=== PATIENT | male | born 1985 | race Caucasian/White ===

== ENCOUNTER → 2018-03-23 | Day surgery (SDC) | payer BC ==
[~2018-03-23] VITALS: Ht 177.8 cm; Wt 97.5 kg
[~2018-03-23] MED LIST: BUPIVAC MPF-EPI 0.5%-1:200000 30 ML VIAL. ONE; BUPIVACAINE 0.25% 50 ML VIAL. ONE; DEXAMETHASONE SOD PHOS 20 MG/5 ML VIAL. ONE; HYDROmorphone 2 MG/ML VIAL IV PRN; IBUP-1027 PO; IV RINGERS,LACTATED 1000ML 1,000 ML IV SCH; KETOROLAC 30 MG/ML INJ FOR OR. INJ ONE; LIDOCAINE 1% PF 2 ML VIAL. ID PRN; MIDAZOLAM HCL/PF 2 MG/2 ML VIAL. ONE; MORPHINE SULFATE 2 MG/ML VIAL. IV PRN; MULT-404 PO; ONDANSETRON PF 4 MG/2 ML VIAL. IV PRN; ONDANSETRON PF 4 MG/2 ML VIAL. ONE; OXYC-323 PO; PROCHLORPERAZINE 10 MG/2 ML VIAL. IV PRN; PROPOFOL 40 ML IV ONE; SUCCINYLCHOLINE 200 MG/10 ML VIAL. ONE; fentaNYL PF VIAL 100 MCG/2 ML VIAL IV PRN; fentaNYL PF VIAL 100 MCG/2 ML VIAL ONE; oxyCODONE/APAP 5/325 1 TAB TABLET PO ONE
--- NOTE | 2018-03-23 10:31 | PDOC4 ---
Operative Note Operative Note Date: 03/23/2018 Preoperative diagnosis: Pilonidal cyst Postoperative diagnosis: Same Procedure: Pilonidal cystectomy Surgeon: Wilbert Specimen: Pilonidal cyst Dictation: Patient is a 32-year-old male with a history of recurrent infected pilonidal cyst procedure of pilonidal cystectomy was explained to the patient detail was benefits were also discussed including bleeding infection alternatives to this procedure also discussed with the patient seemed understanding gave both verbal and written consent had procedure performed. Patient was taken to the operating room placed in supine position general anesthesia was initiated once patient was asleep and intubated is then repositioned in the prone positioning and his buttocks was prepped and draped usual sterile fashion Betadine scrub and solution. An area around the pilonidal cyst was injected with half percent Marcaine with epinephrine and elliptical incision was made with 15 blade scalpel was carried down through the subcutaneous tissue using electrocautery to provide hemostasis this was carried down to the fascia the tissue was completely excised and sent for pathology wound was then closed in 2 layers a deep layer of running 0 Vicryl suture and the skin was reapproximated with 2-0 nylon in a horizontal mattress fashion wound was then dressed with 4 x 4's ABDs and Medipore tape. Patient was repositioned in the supine positioning awakened and asked made in the operating room taken recovery in stable condition all sponge instrument needle counts listed as correct estimate blood loss 20 mL. ANDIE WRIGHT MD Mar 23, 2018 10:31
--- NOTE | 2018-03-23 10:32 | DISCH ---
DISCHARGE INSTRUCTIONS Condition on Discharge Condition on Discharge: Stable Activity After Discharge Activity Instructions for Disc: Avoid exertion Other activity instructions: no sitting directly on the wound for 2 weeks Diet after Discharge Diet after Discharge: Regular Wound Incision Care Other wound/incision instructi: May shower in 24 hours Contacting the after DC Call your doctor for: If your condition worsens Follow-Up Follow up with: Dr. Wright in 2 weeks ANDIE WRIGHT MD Mar 23, 2018 10:32
[2018-03-23 11:34] VITALS: BP 124/72
--- NOTE | 2018-03-26 15:07 | PATHOLOGY ---
[facility] Accession Number: [id number] . 01 Material submitted: . PILONIDAL CYST . 01 Clinical history: . Pilonidal cyst . 02 Diagnosis: Skin and subcutaneous tissue, pilonidal cystectomy: - Pilonidal cyst / sinus with scarring and chronic inflammation. . (JP:mm; 03/26/18) [facility]/03/26/2018 . 02 Comment: There is no evidence of malignancy. . (M:mm; 03/26/18) . 02 Electronically signed: . Rafael Paz MD, Pathologist NPI- [id number] . 01 Gross description: . The specimen is received in formalin, labeled "Whitley Perdomo, pilonidal cyst", is an unoriented ellipse of egan-white skin 5.0 x 0.9 cm with underlying yellow lobulated partially hemorrhagic soft tissue measuring 4.7 x 1.2 x 1.0 cm. The specimen is serially sectioned to reveal a ham-white hemorrhagic possible sinus tract. Computer Support Specialist Instructor tissue is submitted in A1. ([facility]; 03/23/2018) [facility] . 02 Pathologist provided ICD-10: L05.91 . 02 CPT . 110840 Specimen Comment: A courtesy copy of this report has been sent to Specimen Comment: [phone], . Specimen Comment: Report sent to / DR DINH Performed at: 01 [facility] [address], [place] [id number] MD Phil Villalobos MD Phone: [phone] Performed at: 02 [facility] [place] [id number] MD Rafael Paz MD Phone: [phone]
== END | disposition home or self-care (01) ==
LOC: SURG 08:56
PROVIDERS: ATTEND Surgery
DX: L05.91 Pilonidal cyst without abscess (principal); Z72.89 Other problems related to lifestyle; Z79.899 Other long term (current) drug therapy
CPT/HCPCS: 11771; 88304; A7015; J0330; J0690; J1100; J1885; J2250; J2405; J2704; J3010; J3490; A4461